=== PATIENT | male | born 1960 | race Caucasian/White ===

== ENCOUNTER 2019-08-29 03:48 | Inpatient (IN) | payer MEDICAID ==
[~2019-08-29] VITALS: Ht 185.4 cm; Wt 60.1 kg
[2019-08-29] MEDS ORDERED: SODIUM CHLORIDE 0.9% 1,000 ML IV ONE ×3 (05:00→08:20)
[2019-08-29] MEDS ORDERED: InsuLIN REG 1unit/0.01ml Soln (100units/ml) IV ONE ×2 (05:00→08:30)
[2019-08-29 05:15] LABS: Basophils # (auto) 0 10 ^3/uL (0-0.2); Eosinophils # (auto) 0.1 10 ^3/uL (0-0.8); Hemoglobin 10.3 g/dL (13.5-17.5); Lymphocytes # (auto) 0.9 10 ^3/uL (0.4-5.4); Monocytes # (auto) 0.5 10 ^3/uL (0-1.3); Neutrophils # (auto) 2.4 10 ^3/uL (1.6-8.6); White Blood Cell 4.1 10^3/uL (4.4-10.8)
[2019-08-29 05:17] LABS: Basophils % (auto) 0.6 % (0.0-2.0); Eosinophils % (auto) 3.5 % (0.0-7.0); Hematocrit 32.8 % (41.0-53.0); Lymphocytes % (auto) 23.2 % (10.0-50.0); Mean Corpuscular Hemoglobin 23.7 pg (28.0-32.0); Mean Corpuscular Hgb Conc. 31.4 g/dL (32.0-36.0); Mean Corpuscular Volume 75.5 fL (80.0-100.0); Monocytes % (auto) 13.3 % (0.0-12.0); Neutrophils % (auto) 59.4 % (37.0-80.0); Platelet Count (auto) 229 10^3/uL (140-450); Red Blood Cells 4.35 10^6/uL (4.5-5.90)
[2019-08-29 05:30] LABS: Albumin 2.9 g/dL (3.4-5.0); Calcium 8.5 mg/dL (8.5-10.1); Potassium 3.8 mmol/L (3.5-5.1)
[2019-08-29 05:36] LABS: BUN/Creatinine Ratio 11.7; Bilirubin, Total 0.3 mg/dL (0.2-1.0); Total Protein 8.1 g/dL (6.4-8.2)
[2019-08-29 07:11] LABS: Urine Bacteria FEW /hpf (None Seen); Urine Blood Negative /uL (Negative); Urine Budding Yeast OCCASIONAL /hpf (None Seen); Urine Specific Gravity 1.029 (1.001-1.035); Urine WBC 4 /hpf (0 - 3)
[2019-08-29] MEDS ORDERED: PIPERACILLIN-TAZOB 3.375GM 100 ML IV ONE (08:30)
[2019-08-29] MEDS ORDERED: NITROGLYCERIN 0.4 MG SL TAB SL PRN (09:15)
[2019-08-29] MEDS ORDERED: IPRATROPIUM BROM 0.5 MG/2.5ML INH SOL NEB PRN (09:15)
[2019-08-29] MEDS ORDERED: ALBUTEROL SULF 2.5 MG/0.5ML(0.5%) NEB SOLN NEB PRN (09:15)
[2019-08-29] MEDS ORDERED: ACETAMINOPHEN 500 MG TAB PO PRN (09:15)
[2019-08-29] MEDS ORDERED: HYDROcodone-ACET 5/325MG TAB PO PRN (09:15)
[2019-08-29] MEDS ORDERED: ONDANSETRON HCL 4 MG/2 ML VIAL IV PRN (09:15)
[2019-08-29] MEDS ORDERED: MORPHINE SULF INJ 2 MG/ML SYRINGE 1ML IV PRN ×2 (09:15)
[2019-08-29] MEDS ORDERED: DEXTROSE (50%) 50ML SYRG IV PRN (09:15)
[2019-08-29] MEDS ORDERED: VANCOMYCIN PER PHARMACY 0 MG IV SCH (09:15)
[2019-08-29 09:52] LABS: Alcohol, Urine < 3.0 mg/dL (0-5); Amphetamine Screen, Urine POSITIVE (NEGATIVE); Barbiturate Scree,Urine NEGATIVE (NEGATIVE); Benzodiazephine Screen, Urine NEGATIVE (NEGATIVE); Cannabinoid Screen, Urine NEGATIVE (NEGATIVE); Cocaine Screen, Urine NEGATIVE (NEGATIVE); Phencyclidine Screen, Urine NEGATIVE (NEGATIVE)
[2019-08-29 10:00] LABS: Opiate Scree,Urine NEGATIVE (NEGATIVE)
[2019-08-29 10:08] VITALS: BP 146/93
[2019-08-29] MEDS: SODIUM CHLORIDE 0.9% 1,000 ML IV SCH ×2 (10:18→19:15)
[2019-08-29] MEDS: VANCOMYCIN 750mg/250ml 250 ML IV SCH (10:18)
[2019-08-29] MEDS: amLODIPine BESYLATE 5 MG TAB PO SCH (10:19)
[2019-08-29] MEDS: FAMOTIDINE 20 MG TAB PO SCH (10:20)
[2019-08-29] MEDS: ACCU-CHEK COMFORT CURVE STRIP VI SCH ×4 (11:28→23:26)
[2019-08-29] MEDS: InsuLIN REG 1unit/0.01ml Soln (100units/ml) SC SCH ×4 (12:17→23:27)
[2019-08-29 13:00] VITALS: BP 149/97
[2019-08-29] MEDS ORDERED: PIPERACILLIN-TAZOB 3.375GM 100 ML IV SCH (14:00)
[2019-08-29] MEDS: PIPERACILLIN-TAZOB 3.375GM 100 ML IV SCH ×2 (15:58→21:33)
[2019-08-29] MEDS ORDERED: METF-370 PO (16:47)
[2019-08-29] MEDS ORDERED: PENI500T2 PO (16:47)
[2019-08-29 17:00] VITALS: BP 140/98
[2019-08-29 22:00] VITALS: BP 100/61
[2019-08-30] MEDS: VANCOMYCIN 750mg/250ml 250 ML IV SCH (03:34)
[2019-08-30] MEDS: ACCU-CHEK COMFORT CURVE STRIP VI SCH ×3 (03:34→12:12)
[2019-08-30] MEDS: InsuLIN REG 1unit/0.01ml Soln (100units/ml) SC SCH ×3 (03:35→12:12)
[2019-08-30] MEDS: PIPERACILLIN-TAZOB 3.375GM 100 ML IV SCH ×2 (04:33→10:07)
[2019-08-30 04:55] VITALS: BP 105/63
[2019-08-30] MEDS: SODIUM CHLORIDE 0.9% 1,000 ML IV SCH (06:38)
[2019-08-30 09:00] VITALS: BP 128/84
[2019-08-30] MEDS: amLODIPine BESYLATE 5 MG TAB PO SCH (10:07)
[2019-08-30] MEDS: FAMOTIDINE 20 MG TAB PO SCH (10:07)
[2019-08-30 12:47] VITALS: BP 130/82
[2019-08-30] MEDS ORDERED: levoFLOXacin 750MG 150 ML IV ONE (13:15)
[2019-08-30] MEDS ORDERED: INSULIN LANTUS (GLARGINE) 1 /0.01ml (100units/ml) SC ONE (13:15)
[2019-08-30] MEDS ORDERED: DEXTROSE (50%) 50ML SYRG IV PRN (13:15)
[2019-08-30] MEDS ORDERED: DOXY-286 PO (15:27)
[2019-08-30] MEDS ORDERED: METF-371 PO (15:27)
[2019-08-30] MEDS ORDERED: InsuLIN REG 1unit/0.01ml Soln (100units/ml) SC SCH ×2 (17:00→22:00)
[2019-08-30] MEDS ORDERED: ACCU-CHEK COMFORT CURVE STRIP VI SCH (17:00)
[2019-08-31] MEDS ORDERED: levoFLOXacin 750MG 150 ML IV SCH (10:00)
[2019-08-31] MEDS ORDERED: DAKINS HALF STR 0.25% (NaHypochlorite) 473 ML TOPICAL SOL TOP SCH (10:00)
[2019-08-31] MEDS ORDERED: INSULIN LANTUS (GLARGINE) 1 /0.01ml (100units/ml) SC SCH (10:00)
== END 2019-08-30 16:04 | disposition home or self-care (01) | DRG 380 ==
LOC: ER 03:51 → TELE 03:52 → TELE-WESTW 11:24
PROVIDERS: ADMIT Nurse Practitioner Acute Care; ATTEND Internal Medicine
PROC: 0Y9M0ZZ Drainage of Right Foot, Open Approach (ICD-10-PCS; principal; 2019-08-30)
DX: E11.621 Type 2 diabetes mellitus with foot ulcer (principal); L97.519 Non-pressure chronic ulcer of other part of right foot with unspecified severity; E11.40 Type 2 diabetes mellitus with diabetic neuropathy, unspecified; E44.0 Moderate protein-calorie malnutrition; E11.65 Type 2 diabetes mellitus with hyperglycemia; D50.9 Iron deficiency anemia, unspecified; F15.10 Other stimulant abuse, uncomplicated; D63.8 Anemia in other chronic diseases classified elsewhere; E86.0 Dehydration; W18.39XA Other fall on same level, initial encounter; F17.210 Nicotine dependence, cigarettes, uncomplicated; I10 Essential (primary) hypertension; S92.901A Unspecified fracture of right foot, initial encounter for closed fracture; Z89.512 Acquired absence of left leg below knee; Z59.0 Homelessness; Z79.4 Long term (current) use of insulin; Z68.1 Body mass index [BMI] 19.9 or less, adult; Y93.89 Activity, other specified; Y92.098 Other place in other non-institutional residence as the place of occurrence of the external cause; Y99.8 Other external cause status
CPT/HCPCS: 36415; 73200; 73700; 80053; 80307; 81001; 82010; 82565; 82962; 83036; 83605; 85025; 87040; 87077; 87186; 87205; 96361; 96365; 96375; 96376; G0378; J1815; J1956; J2543

== ENCOUNTER 2019-09-02 16:27 | Inpatient (IN) | payer MEDICAID ==
[~2019-09-02] VITALS: Ht 160 cm; Wt 64.0 kg
[~2019-09-02 16:27] MED LIST: DOXY-286 PO; METF-371 PO
[2019-09-02 17:49] LABS: Basophils # (auto) 0 10 ^3/uL (0-0.2); Eosinophils # (auto) 0.1 10 ^3/uL (0-0.8); Eosinophils % (auto) 2.5 % (0.0-7.0); Lymphocytes # (auto) 1.2 10 ^3/uL (0.4-5.4); Monocytes # (auto) 0.5 10 ^3/uL (0-1.3)
[2019-09-02 17:50] LABS: Basophils % (auto) 0.9 % (0.0-2.0); Hematocrit 32.6 % (41.0-53.0); Hemoglobin 10.7 g/dL (13.5-17.5); Lymphocytes % (auto) 26.3 % (10.0-50.0); Mean Corpuscular Hemoglobin 23.7 pg (28.0-32.0); Mean Corpuscular Hgb Conc. 32.7 g/dL (32.0-36.0); Mean Corpuscular Volume 72.7 fL (80.0-100.0); Monocytes % (auto) 11.3 % (0.0-12.0); Neutrophils # (auto) 2.6 10 ^3/uL (1.6-8.6); Platelet Count (auto) 235 10^3/uL (140-450); Red Blood Cells 4.49 10^6/uL (4.5-5.90); Red Cell Distribution Width 15.8 % (11.8-14.3); White Blood Cell 4.4 10^3/uL (4.4-10.8)
[2019-09-02 18:10] LABS: Albumin 2.8 g/dL (3.4-5.0); Calcium 8.6 mg/dL (8.5-10.1)
[2019-09-02 18:15] LABS: BUN/Creatinine Ratio 26.1; Bilirubin, Total 0.3 mg/dL (0.2-1.0); Total Protein 8.2 g/dL (6.4-8.2)
[2019-09-02] MEDS ORDERED: KETOROLAC TROMETH 15 mg/ml 1ML VL IV ONE (21:45)
[2019-09-02] MEDS ORDERED: ONDANSETRON HCL 4 MG/2 ML VIAL IV ONE (21:45)
[2019-09-02] MEDS ORDERED: IOHEXOL 300 MG/ML 100ML BOTTLE IJ ONE (21:49)
[2019-09-02 22:17] LABS: Amylase 35 U/L (25-115); Lipase 77 U/L (73-393)
[2019-09-02] MEDS ORDERED: SODIUM CHLORIDE 0.9% 1,000 ML IV ONE (22:30)
[2019-09-02] MEDS ORDERED: KETOROLAC TROMETH 30 MG/ML 1ML VIAL ONE (22:34)
[2019-09-03] VITALS (7 sets, daily range): BP systolic 104–146; BP diastolic 71–93
[2019-09-03] MEDS ORDERED: levoFLOXacin 750MG 150 ML IV ONE ×2 (00:15→00:20)
[2019-09-03] MEDS ORDERED: SODIUM CHLORIDE 0.9% 1,000 ML IV SCH (02:42)
[2019-09-03] MEDS ORDERED: MORPHINE SULFATE 4 MG/ML SYR/VIAL IV PRN (02:45)
[2019-09-03] MEDS ORDERED: DEXTROSE (50%) 50ML SYRG IV PRN (02:45)
[2019-09-03] MEDS ORDERED: ONDANSETRON HCL 4 MG/2 ML VIAL IV PRN (02:45)
[2019-09-03] MEDS ORDERED: HYDROcodone-ACET 5/325MG TAB PO PRN (02:45)
[2019-09-03] MEDS ORDERED: ACETAMINOPHEN 325 MG TAB PO PRN (02:45)
[2019-09-03] MEDS ORDERED: DOCUSATE SOD 100 MG CAP PO PRN (02:45)
[2019-09-03] MEDS ORDERED: TEMAZEPAM 15 MG CAP PO PRN (02:45)
[2019-09-03] MEDS: SODIUM CHLORIDE 0.9% 1,000 ML IV SCH ×3 (03:00→23:48)
[2019-09-03 03:01] LABS: Urine Bacteria NONE SEEN /hpf (None Seen); Urine Blood Negative /uL (Negative); Urine Mucus FEW (None Seen); Urine Specific Gravity 1.033 (1.001-1.035); Urine WBC 1 /hpf (0 - 3)
[2019-09-03 03:12] LABS: Alcohol, Urine < 3.0 mg/dL (0-5); Amphetamine Screen, Urine POSITIVE (NEGATIVE); Barbiturate Scree,Urine NEGATIVE (NEGATIVE); Benzodiazephine Screen, Urine NEGATIVE (NEGATIVE); Cannabinoid Screen, Urine NEGATIVE (NEGATIVE); Cocaine Screen, Urine NEGATIVE (NEGATIVE); Phencyclidine Screen, Urine NEGATIVE (NEGATIVE)
[2019-09-03 03:19] LABS: Opiate Scree,Urine NEGATIVE (NEGATIVE)
[2019-09-03] MEDS: InsuLIN REG 1unit/0.01ml Soln (100units/ml) SC SCH ×6 (04:00→23:48)
[2019-09-03] MEDS: ACCU-CHEK COMFORT CURVE STRIP VI SCH ×6 (04:00→23:48)
[2019-09-03 05:43] LABS: Basophils # (auto) 0 10 ^3/uL (0-0.2); Eosinophils # (auto) 0.1 10 ^3/uL (0-0.8); Eosinophils % (auto) 4.3 % (0.0-7.0); Hematocrit 28.2 % (41.0-53.0); Hemoglobin 9.3 g/dL (13.5-17.5); Lymphocytes % (auto) 31.2 % (10.0-50.0); Mean Corpuscular Hgb Conc. 33.1 g/dL (32.0-36.0); Mean Corpuscular Volume 72.7 fL (80.0-100.0); Monocytes # (auto) 0.4 10 ^3/uL (0-1.3); Monocytes % (auto) 12.6 % (0.0-12.0); Neutrophils # (auto) 1.7 10 ^3/uL (1.6-8.6); Neutrophils % (auto) 50.9 % (37.0-80.0); Nucleated Red Blood Cells % 0.1 %; Platelet Count (auto) 184 10^3/uL (140-450); Red Blood Cells 3.88 10^6/uL (4.5-5.90); Red Cell Distribution Width 16.1 % (11.8-14.3); White Blood Cell 3.3 10^3/uL (4.4-10.8)
[2019-09-03 06:00] LABS: Potassium 3.8 mmol/L (3.5-5.1)
[2019-09-03 06:15] LABS: BUN/Creatinine Ratio 32.2; Calcium 8.2 mg/dL (8.5-10.1)
[2019-09-03] MEDS: LISINOPRIL 20 MG TAB PO SCH (09:41)
[2019-09-03] MEDS ORDERED: cefTRIAXone 1GM/50ML D5W 50 ML IV ONE (13:30)
[2019-09-03] MEDS ORDERED: AZITHROMYCIN 250 MG TAB PO ONE (13:30)
[2019-09-03] MEDS: ALBUTEROL SULF 2.5 MG/0.5ML(0.5%) NEB SOLN NEB SCH (19:11)
[2019-09-03] MEDS: IPRATROPIUM BROM 0.5 MG/2.5ML INH SOL NEB SCH (19:11)
[2019-09-04] MEDS: InsuLIN REG 1unit/0.01ml Soln (100units/ml) SC SCH ×5 (04:00→21:08)
[2019-09-04] MEDS: ACCU-CHEK COMFORT CURVE STRIP VI SCH ×5 (04:16→20:00)
[2019-09-04 05:00] VITALS: BP 119/76
[2019-09-04 06:00] LABS: Basophils # (auto) 0 10 ^3/uL (0-0.2); Basophils % (auto) 0.6 % (0.0-2.0); Eosinophils # (auto) 0.1 10 ^3/uL (0-0.8); Eosinophils % (auto) 3.1 % (0.0-7.0); Hematocrit 29.3 % (41.0-53.0); Hemoglobin 9.7 g/dL (13.5-17.5); Lymphocytes # (auto) 1.1 10 ^3/uL (0.4-5.4); Lymphocytes % (auto) 24.3 % (10.0-50.0); Mean Corpuscular Hemoglobin 24.1 pg (28.0-32.0); Mean Corpuscular Hgb Conc. 33.2 g/dL (32.0-36.0); Mean Corpuscular Volume 72.5 fL (80.0-100.0); Monocytes # (auto) 0.5 10 ^3/uL (0-1.3); Monocytes % (auto) 10.4 % (0.0-12.0); Neutrophils # (auto) 2.8 10 ^3/uL (1.6-8.6); Neutrophils % (auto) 61.6 % (37.0-80.0); Nucleated Red Blood Cells % 0.2 %; Platelet Count (auto) 195 10^3/uL (140-450); Red Blood Cells 4.04 10^6/uL (4.5-5.90); Red Cell Distribution Width 15.9 % (11.8-14.3); White Blood Cell 4.5 10^3/uL (4.4-10.8)
[2019-09-04 06:11] LABS: BUN/Creatinine Ratio 33.3; Calcium 8.1 mg/dL (8.5-10.1); INR 1.12 (0.9-1.15); Potassium 4.2 mmol/L (3.5-5.1)
[2019-09-04] MEDS: IPRATROPIUM BROM 0.5 MG/2.5ML INH SOL NEB SCH ×3 (06:44→19:04)
[2019-09-04] MEDS: ALBUTEROL SULF 2.5 MG/0.5ML(0.5%) NEB SOLN NEB SCH ×3 (06:44→19:05)
[2019-09-04 09:00] VITALS: BP 117/79
[2019-09-04] MEDS: cefTRIAXone 1GM/50ML D5W 50 ML IV SCH (10:06)
[2019-09-04] MEDS: AZITHROMYCIN 250 MG TAB PO SCH (10:07)
[2019-09-04] MEDS: LISINOPRIL 20 MG TAB PO SCH (10:07)
[2019-09-04 13:00] VITALS: BP 155/95
[2019-09-04] MEDS: SODIUM CHLORIDE 0.9% 1,000 ML IV SCH (18:37)
[2019-09-04] MEDS: DAKINS QUARTER STR 0.125% (NaHypochlorite) 473 ML TOPICAL SOL TOP SCH (21:36)
[2019-09-04 22:00] VITALS: BP 104/61
[2019-09-05] MEDS: ACCU-CHEK COMFORT CURVE STRIP VI SCH ×6 (00:03→21:03)
[2019-09-05] MEDS: InsuLIN REG 1unit/0.01ml Soln (100units/ml) SC SCH ×6 (00:07→21:03)
[2019-09-05 05:00] VITALS: BP 103/69
[2019-09-05 05:49] LABS: Basophils # (auto) 0 10 ^3/uL (0-0.2); Eosinophils # (auto) 0.1 10 ^3/uL (0-0.8); Lymphocytes # (auto) 1.1 10 ^3/uL (0.4-5.4); Monocytes # (auto) 0.4 10 ^3/uL (0-1.3); Neutrophils # (auto) 1.5 10 ^3/uL (1.6-8.6); Platelet Count (auto) 187 10^3/uL (140-450); White Blood Cell 3.2 10^3/uL (4.4-10.8)
[2019-09-05 05:51] LABS: Basophils % (auto) 0.9 % (0.0-2.0); Eosinophils % (auto) 4.4 % (0.0-7.0); Hematocrit 27.3 % (41.0-53.0); Lymphocytes % (auto) 33.2 % (10.0-50.0); Mean Corpuscular Hemoglobin 23.8 pg (28.0-32.0); Mean Corpuscular Hgb Conc. 32.8 g/dL (32.0-36.0); Mean Corpuscular Volume 72.6 fL (80.0-100.0); Monocytes % (auto) 13.4 % (0.0-12.0); Neutrophils % (auto) 48.1 % (37.0-80.0); Nucleated Red Blood Cells % 0.1 %; Red Blood Cells 3.76 10^6/uL (4.5-5.90); Red Cell Distribution Width 16.1 % (11.8-14.3)
[2019-09-05] MEDS: IPRATROPIUM BROM 0.5 MG/2.5ML INH SOL NEB SCH ×3 (05:59→18:27)
[2019-09-05] MEDS: ALBUTEROL SULF 2.5 MG/0.5ML(0.5%) NEB SOLN NEB SCH ×3 (05:59→18:27)
[2019-09-05 06:05] LABS: Potassium 3.9 mmol/L (3.5-5.1)
[2019-09-05 06:11] LABS: Calcium 7.9 mg/dL (8.5-10.1)
[2019-09-05 07:20] LABS: BUN/Creatinine Ratio 31.6
[2019-09-05] MEDS: SODIUM CHLORIDE 0.9% 1,000 ML IV SCH (08:15)
[2019-09-05] MEDS: cefTRIAXone 1GM/50ML D5W 50 ML IV SCH (08:17)
[2019-09-05 09:00] VITALS: BP 124/84
[2019-09-05] MEDS: AZITHROMYCIN 250 MG TAB PO SCH (09:39)
[2019-09-05] MEDS: DAKINS QUARTER STR 0.125% (NaHypochlorite) 473 ML TOPICAL SOL TOP SCH ×2 (09:39→22:00)
[2019-09-05] MEDS: LISINOPRIL 20 MG TAB PO SCH (09:39)
[2019-09-05] MEDS ORDERED: IOHEXOL 300 MG/ML 100ML BOTTLE IJ ONE (10:48)
[2019-09-05] MEDS: Glucerna Carbsteady SHAKE Vanilla 8oz PO SCH ×2 (11:56→17:19)
[2019-09-05 12:59] VITALS: BP 135/90
[2019-09-05 17:00] VITALS: BP 143/91
[2019-09-05 20:00] VITALS: BP 124/84
[2019-09-05 22:00] VITALS: BP 120/73
[2019-09-06] VITALS (7 sets, daily range): BP systolic 103–131; BP diastolic 50–82
[2019-09-06] MEDS: InsuLIN REG 1unit/0.01ml Soln (100units/ml) SC SCH ×7 (00:50→22:00)
[2019-09-06] MEDS: ACCU-CHEK COMFORT CURVE STRIP VI SCH ×6 (00:50→23:56)
[2019-09-06] MEDS: SODIUM CHLORIDE 0.9% 1,000 ML IV SCH ×2 (00:51→16:52)
[2019-09-06 05:57] LABS: Basophils # (auto) 0 10 ^3/uL (0-0.2); Eosinophils # (auto) 0.2 10 ^3/uL (0-0.8); Hemoglobin 9.4 g/dL (13.5-17.5); Lymphocytes # (auto) 1.1 10 ^3/uL (0.4-5.4); Monocytes # (auto) 0.5 10 ^3/uL (0-1.3); Neutrophils # (auto) 2.2 10 ^3/uL (1.6-8.6); Nucleated Red Blood Cells % 0.1 %
[2019-09-06 05:59] LABS: Basophils % (auto) 0.8 % (0.0-2.0); Eosinophils % (auto) 4.2 % (0.0-7.0); Hematocrit 28.6 % (41.0-53.0); Mean Corpuscular Hemoglobin 23.8 pg (28.0-32.0); Mean Corpuscular Hgb Conc. 32.9 g/dL (32.0-36.0); Mean Corpuscular Volume 72.4 fL (80.0-100.0); Monocytes % (auto) 11.5 % (0.0-12.0); Neutrophils % (auto) 55.5 % (37.0-80.0); Platelet Count (auto) 208 10^3/uL (140-450); Red Blood Cells 3.96 10^6/uL (4.5-5.90); Red Cell Distribution Width 16.3 % (11.8-14.3)
[2019-09-06 06:08] LABS: Potassium 4.4 mmol/L (3.5-5.1)
[2019-09-06 06:13] LABS: BUN/Creatinine Ratio 29.6; Calcium 8.9 mg/dL (8.5-10.1)
[2019-09-06] MEDS: Glucerna Carbsteady SHAKE Vanilla 8oz PO SCH ×3 (07:49→18:06)
[2019-09-06] MEDS: ALBUTEROL SULF 2.5 MG/0.5ML(0.5%) NEB SOLN NEB SCH ×3 (08:05→18:25)
[2019-09-06] MEDS: IPRATROPIUM BROM 0.5 MG/2.5ML INH SOL NEB SCH ×3 (08:05→18:25)
[2019-09-06] MEDS: cefTRIAXone 1GM/50ML D5W 50 ML IV SCH (09:00)
[2019-09-06] MEDS: LISINOPRIL 20 MG TAB PO SCH (10:27)
[2019-09-06] MEDS: AZITHROMYCIN 250 MG TAB PO SCH (10:27)
[2019-09-06] MEDS: DAKINS QUARTER STR 0.125% (NaHypochlorite) 473 ML TOPICAL SOL TOP SCH ×2 (10:27→23:56)
[2019-09-06] MEDS ORDERED: DEXTROSE (50%) 50ML SYRG IV PRN (12:15)
[2019-09-06] MEDS ORDERED: IOHEXOL 300 MG/ML 100ML BOTTLE IJ ONE (12:59)
[2019-09-06] MEDS: INSULIN LANTUS (GLARGINE) 1 /0.01ml (100units/ml) SC SCH (23:55)
[2019-09-07] VITALS (9 sets, daily range): BP systolic 98–154; BP diastolic 50–91
[2019-09-07] MEDS: SODIUM CHLORIDE 0.9% 1,000 ML IV SCH (01:50)
[2019-09-07] MEDS: IPRATROPIUM BROM 0.5 MG/2.5ML INH SOL NEB SCH ×3 (06:44→20:11)
[2019-09-07] MEDS: ALBUTEROL SULF 2.5 MG/0.5ML(0.5%) NEB SOLN NEB SCH ×3 (06:44→20:11)
[2019-09-07] MEDS: InsuLIN REG 1unit/0.01ml Soln (100units/ml) SC SCH ×4 (06:53→22:09)
[2019-09-07] MEDS: ACCU-CHEK COMFORT CURVE STRIP VI SCH ×4 (06:56→22:12)
[2019-09-07 07:17] LABS: BUN/Creatinine Ratio 41.8; Calcium 8.2 mg/dL (8.5-10.1); Potassium 4.4 mmol/L (3.5-5.1)
[2019-09-07] MEDS: Glucerna Carbsteady SHAKE Vanilla 8oz PO SCH ×3 (07:29→18:11)
[2019-09-07] MEDS: cefTRIAXone 1GM/50ML D5W 50 ML IV SCH (08:35)
[2019-09-07] MEDS: LISINOPRIL 20 MG TAB PO SCH (10:00)
[2019-09-07] MEDS: AZITHROMYCIN 250 MG TAB PO SCH (10:00)
[2019-09-07] MEDS: D5W 5% 1,000 ML IV SCH ×2 (13:00→14:30)
[2019-09-07] MEDS: DAKINS QUARTER STR 0.125% (NaHypochlorite) 473 ML TOPICAL SOL TOP SCH ×2 (13:57→22:11)
[2019-09-07] MEDS ORDERED: MIDAZOLAM HCL 1MG/1ML-2 ML VIAL IV ONE (14:00)
[2019-09-07] MEDS ORDERED: fentaNYL CITRATE 100 MCG/2 ML VL IV ONE (14:00)
[2019-09-07] MEDS: INSULIN LANTUS (GLARGINE) 1 /0.01ml (100units/ml) SC SCH (22:11)
[2019-09-08 04:47] VITALS: BP 116/73
[2019-09-08] MEDS: InsuLIN REG 1unit/0.01ml Soln (100units/ml) SC SCH ×2 (06:40→11:19)
[2019-09-08] MEDS: ACCU-CHEK COMFORT CURVE STRIP VI SCH ×2 (06:40→11:15)
[2019-09-08] MEDS: IPRATROPIUM BROM 0.5 MG/2.5ML INH SOL NEB SCH ×2 (06:47→11:55)
[2019-09-08] MEDS: ALBUTEROL SULF 2.5 MG/0.5ML(0.5%) NEB SOLN NEB SCH ×2 (06:47→11:55)
[2019-09-08 08:00] VITALS: BP 105/73
[2019-09-08] MEDS: cefTRIAXone 1GM/50ML D5W 50 ML IV SCH (08:04)
[2019-09-08] MEDS: Glucerna Carbsteady SHAKE Vanilla 8oz PO SCH ×2 (08:05→12:35)
[2019-09-08] MEDS: AZITHROMYCIN 250 MG TAB PO SCH (09:39)
[2019-09-08] MEDS: LISINOPRIL 20 MG TAB PO SCH (09:40)
[2019-09-08] MEDS: DAKINS QUARTER STR 0.125% (NaHypochlorite) 473 ML TOPICAL SOL TOP SCH (09:41)
[2019-09-08 11:29] VITALS: BP 105/73
== END 2019-09-08 13:45 | disposition hospice, home (50) | DRG 952 ==
LOC: ER 16:27 → OVERFLOW 16:28 → CENTRAL 09-03 03:37
PROVIDERS: ADMIT Hospitalist; ATTEND Internal Medicine Nephrology
PROC: 07B63ZX Excision of Left Axillary Lymphatic, Percutaneous Approach, Diagnostic (ICD-10-PCS; principal; 2019-09-07)
DX: C34.31 Malignant neoplasm of lower lobe, right bronchus or lung (principal); J18.9 Pneumonia, unspecified organism; E44.0 Moderate protein-calorie malnutrition; E11.621 Type 2 diabetes mellitus with foot ulcer; E11.40 Type 2 diabetes mellitus with diabetic neuropathy, unspecified; E11.65 Type 2 diabetes mellitus with hyperglycemia; L97.519 Non-pressure chronic ulcer of other part of right foot with unspecified severity; D63.8 Anemia in other chronic diseases classified elsewhere; J45.909 Unspecified asthma, uncomplicated; R10.9 Unspecified abdominal pain; R91.1 Solitary pulmonary nodule; I10 Essential (primary) hypertension; F19.10 Other psychoactive substance abuse, uncomplicated; Z87.898 Personal history of other specified conditions; Z89.512 Acquired absence of left leg below knee; Z59.0 Homelessness; F15.10 Other stimulant abuse, uncomplicated; R91.8 Other nonspecific abnormal finding of lung field; F17.210 Nicotine dependence, cigarettes, uncomplicated; F60.9 Personality disorder, unspecified; K80.20 Calculus of gallbladder without cholecystitis without obstruction; Z79.4 Long term (current) use of insulin; Z86.718 Personal history of other venous thrombosis and embolism; Z68.25 Body mass index [BMI] 25.0-25.9, adult
CPT/HCPCS: 10022; 36415; 71250; 71260; 74177; 76881; 76942; 80048; 80053; 80307; 81001; 82150; 82962; 83036; 83605; 83690; 85025; 85610; 87040; 87081; 94640; 96361; 96365; 96375; 96376; G0378; J0696; J1815; J1885; J1956; J2250; J2405